=== PATIENT | female | born 1940 | race American Indian/Alaskan Native ===

== ENCOUNTER 2016-05-15 10:34 | Emergency (ER) | payer MEDICARE ==
[2016-05-15 10:55] VITALS: BP 153/75
--- NOTE | 2016-05-15 11:28 | XRay Report ---
ROUTINE CHEST, TWO VIEWS: HISTORY: chest pain, shortness of breath. The trachea, heart, mediastinal contour, lung tadeo and bony thorax are unremarkable. IMPRESSION: Unremarkable chest x-ray.
[2016-05-15 11:30] LABS: Basophils % (Auto) 0.5 % (0.0-1.8); Eosinophils % (Auto) 1.5 % (0.0-4.3); Hemoglobin 12.5 gm/dl (10.1-14.3); Mean Corpuscular HGB Conc 35 % (30-34); Mean Corpuscular Hemoglobin 30 pg (28-32); Mean Corpuscular Volume 86 fl (79-97); Platelet Count 201 K/mm3 (140-440); Red Blood Count 4.17 M/mm3 (3.65-5.03)
[2016-05-15 11:42] LABS: Anion Gap 16 mmol/L; BUN/Creatinine Ratio 17.77; Blood Urea Nitrogen 16 mg/dL (7-17); Calcium 9.6 mg/dL (8.4-10.2); Carbon Dioxide 22 mmol/L (22-30); Glucose 78 mg/dL (65-100); Potassium 3.8 mmol/L (3.6-5.0); Sodium 142 mmol/L (137-145)
--- NOTE | 2016-05-17 14:11 | ED Elopement Review ---
ED Pt Elopement review - Results review Lab results: Laboratory Tests 05/15/16 05/15/16 05/15/16 11:16 11:16 13:59 WBC 7.0 RBC 4.17 Hgb 12.5 Hct 36.0 MCV 86 MCH 30 MCHC 35 H RDW 14.0 Plt Count 201 Lymph % (Auto) 37.6 H [place] % (Auto) 5.7 Eos % (Auto) 1.5 Baso % (Auto) 0.5 Lymph # 2.6 [place] # 0.4 Eos # 0.1 Baso # 0.0 Seg Neutrophils % 54.7 Seg Neutrophils # 3.8 Sodium 142 Potassium 3.8 Chloride 108.0 H Carbon Dioxide 22 Anion Gap 16 BUN 16 Creatinine 0.9 Estimated GFR > 60 BUN/Creatinine Ratio 17.77 Glucose 78 Calcium 9.6 Troponin T < 0.010 < 0.010 05/15/16 16:51 WBC RBC Hgb Hct MCV MCH MCHC RDW Plt Count Lymph % (Auto) [place] % (Auto) Eos % (Auto) Baso % (Auto) Lymph # [place] # Eos # Baso # Seg Neutrophils % Seg Neutrophils # Sodium Potassium Chloride Carbon Dioxide Anion Gap BUN Creatinine Estimated GFR BUN/Creatinine Ratio Glucose Calcium Troponin T < 0.010 - Call Back decision Pt Call Back Decision: No action required
== END 2016-05-15 20:50 | disposition left against medical advice (07) ==
LOC: ED 10:34
DX: R07.9 Chest pain, unspecified (principal); R06.02 Shortness of breath; R42 Dizziness and giddiness; F17.200 Nicotine dependence, unspecified, uncomplicated; Z88.5 Allergy status to narcotic agent; Z91.040 Latex allergy status; Z88.2 Allergy status to sulfonamides; Z88.0 Allergy status to penicillin; Z53.21 Procedure and treatment not carried out due to patient leaving prior to being seen by health care provider
CPT/HCPCS: 36415; 71020; 80048; 84484; 85025; 93005; 93010